=== PATIENT | male | born 1955 ===

== ENCOUNTER 2016-11-22 18:28 | Emergency (ER) | payer MEDICAID ==
[2016-11-22] MEDS ORDERED: Sodium Chloride 0.9% 500 ML IV ONE ×2 (20:14→20:21)
[2016-11-22] MEDS ORDERED: Sodium Chloride 0.9% 1,000 ML IV ONE (20:14)
[2016-11-22] MEDS ORDERED: HYDROmorphone 1 mg/ml ISec IVP STA (20:15)
--- NOTE | 2016-11-22 20:16 | C.PDOC ---
History Of Present Illness Patient is a 61 year old male who presents to the ER with a complaint of abdominal pain, associated with nausea, vomiting, and diarrhea since last night. Patient states he went to see PMD this morning who prescribed him an antacid which gave him no relief. Denies any Hx of ETOH use or symptoms of chest pain, fever, or chills. Chief Complaint (Nursing): Abdominal Pain History Per: Patient History/Exam Limitations: no limitations Onset/Duration Of Symptoms: Days (Since last night) Current Symptoms Are (Timing): Still Present Location Of Pain/Discomfort: Other (Abdominal pain) Associated Symptoms: Nausea, Vomiting, Diarrhea. denies: Fever, Chills Past Medical History Reviewed: Historical Data, Nursing Documentation, Vital Signs Vital Signs: Last Vital Signs Temp 98.6 F 11/22/16 22:06 Pulse 70 11/22/16 22:06 Resp 18 11/22/16 22:06 BP 125/72 11/22/16 22:06 Pulse Ox 96 11/22/16 22:06 - Medical History PMH: HTN Surgical History: No Surg Hx Family History: States: Unknown Family Hx - Social History Hx Alcohol Use: No Hx Substance Use: No - Immunization History Hx Tetanus Toxoid Vaccination: No Hx Influenza Vaccination: No Hx Pneumococcal Vaccination: No Review Of Systems Constitutional: Negative for: Fever, Chills Cardiovascular: Negative for: Chest Pain Gastrointestinal: Positive for: Nausea, Vomiting, Abdominal Pain, Diarrhea Physical Exam - Physical Exam Appears: Non-toxic, Other (Mild Distress) Skin: Normal Color, Warm, Dry Head: Atraumatic, Normacephalic Oral Mucosa: Moist Chest: Symmetrical, No Tenderness Cardiovascular: Rhythm Regular, No Murmur Respiratory: Normal Breath Sounds, No Rales, No Rhonchi, No Wheezing Gastrointestinal/Abdominal: Soft, Tenderness (RUQ. Increased with deep breaths) Neurological/Psych: Oriented x3, Normal Speech, Normal Cognition ED Course And Treatment - Laboratory Results Result Diagrams: 11/22/16 20:00 11/22/16 20:00 O2 Sat by Pulse Oximetry: 96 (Room air) Pulse Ox Interpretation: Normal Progress Note: EKG, blood work, abdominal US, and urinalysis ordered. Bentyl IM , pepcid IVP, dilaudid IVP, toradol IVP, zofran IVP, and IV fluids. Disposition Counseled Patient/Family Regarding: Diagnosis - Disposition Referrals: [facility] [Outside] Disposition: HOME/ ROUTINE Disposition Time: 23:11 Condition: STABLE Prescriptions: Atropine/Hyoscyamine [] 1 tab PO Q6 #12 tab Sucralfate [Carafate] 1 gm PO TID #20 tablet Instructions: Abdominal Pain (ED), Diet for Ulcers and Gastritis (GEN), Duodenitis (ED), Gastritis (ED) Forms: Gen Discharge Inst Occitan Print Language: PALAUAN - POA Present On Arrival: None - Clinical Impression Clinical Impression: Abdominal pain, Gastritis and gastroduodenitis - Scribe Statement The provider has reviewed the documentation as recorded by the Scribmatthew Antunez All medical record entries made by the Juanibmatthew were at my direction and personally dictated by me. I have reviewed the chart and agree that the record accurately reflects my personal performance of the history, physical exam, medical decision making, and the department course for this patient. I have also personally directed, reviewed, and agree with the discharge instructions and disposition.
--- NOTE | 2016-11-22 20:17 | C.PDOC ---
Chief Complaint (Nursing): Abdominal Pain Past Medical History Vital Signs: Last Vital Signs Temp 98.1 F 11/22/16 18:45 Pulse 71 11/22/16 18:45 Resp 17 11/22/16 18:45 BP 135/72 11/22/16 18:45 Pulse Ox 96 11/22/16 18:45 - Medical History PMH: HTN - Social History Hx Alcohol Use: No Hx Substance Use: No - Immunization History Hx Tetanus Toxoid Vaccination: No Hx Influenza Vaccination: No Hx Pneumococcal Vaccination: No ED Course And Treatment O2 Sat by Pulse Oximetry: 96
[2016-11-22] MEDS ORDERED: Sodium Chloride 0.9% 1,000 ML ONE (20:21)
[2016-11-22 20:22] LABS: CHLORIDE 92 mmol/L (98-107)
[2016-11-22 20:23] LABS: POTASSIUM 3.8 mmol/L (3.6-5.2); SODIUM 130 mmol/L (132-148)
[2016-11-22 20:24] LABS: RBC URINE 21 /hpf (0-3); URINE BACTERIA RARE (<OCC); URINE BILIRUBIN NEGATIVE (NEGATIVE); URINE COLOR Yellow (YELLOW); URINE GLUCOSE (UA) NORMAL (Normal); URINE KETONE TRACE mg/dL (NEGATIVE); URINE LEUKOCYTE ESTERASE NEG Leu/uL (Negative); URINE PROTEIN 1+ mg/dL (NEGATIVE); URINE UROBILINOGEN NORMAL mg/dL (0.2-1.0); WBC URINE 1 /hpf (0-5)
[2016-11-22 20:25] LABS: ALB/GLOB RATIO 1.5 (1.0-2.1); ALKALINE PHOSPHATASE 63 U/L (38-126); ALT/SGPT 31 U/L (21-72); AST/SGOT 24 U/L (17-59); BILIRUBIN,TOTAL 1.6 mg/dL (0.2-1.3); BLOOD UREA NITROGEN 9 mg/dL (9-20); CALCIUM 8.3 mg/dl (8.6-10.4); CARBON DIOXIDE 26 mmol/L (22-30); GFR AFRICAN-AMERICAN > 60; GLUCOSE,RANDOM 129 mg/dL (75-110); TOTAL PROTEIN 7.2 g/dL (6.3-8.3)
[2016-11-22 20:27] LABS: BASO % 0.2 % (0.0-2.0); EOS % 0.1 % (0.0-4.0); HEMATOCRIT 47.4 % (35.0-51.0); LYMPH # 1.5 K/uL (1.0-4.3); LYMPH % 13.2 % (20.0-40.0); MEAN CELL VOLUME 90.3 fL (80.0-94.0); MEAN CORPUSCULAR HEMOGLOBIN 30.1 pg (27.0-31.0); MEAN CORPUSCULAR HGB CONC 33.3 g/dL (33.0-37.0); MEAN PLATELET VOLUME 8.6 fL (7.2-11.7); MONO # 0.6 K/uL (0.0-0.8); MONO % 5.4 % (0.0-10.0); NRBC % 0.1 % (0.0-2.0); RED CELL DISTRIBUTION WIDTH 12.6 % (11.5-14.5); URINE BLOOD 3+ (NEGATIVE); WHITE BLOOD COUNT 11.1 K/uL (4.8-10.8)
--- NOTE | 2016-11-22 21:20 | US ---
EXAM: US Abdomen Complete CLINICAL HISTORY: 61 years old, male; Pain; Abdominal pain; Generalized; Additional info: Abd pain TECHNIQUE: Real-time ultrasound of the abdomen (complete) with image documentation. COMPARISON: No relevant prior studies available. FINDINGS: Liver: Fatty infiltration. No mass. No intrahepatic ductal dilatation. Gallbladder: No gallstones. No wall thickening. No pericholecystic fluid. Common bile duct: No dilatation. No stones. Pancreas: Unremarkable as visualized. Kidneys: Normal echogenicity. No hydronephrosis. Spleen: No splenomegaly. Aorta: Unremarkable. No aneurysm. Inferior vena cava: Unremarkable. Free fluid: No significant free fluid. IMPRESSION: 1.No acute findings. 2.Non-acute findings are described above.
[2016-11-22 22:07] VITALS: RESP 18
[2016-11-22 23:32] VITALS: BP 135/70; PULSE 72; TEMP 98.4; O2SAT 95
== END 2016-11-22 23:37 | disposition home or self-care (01) ==
LOC: C.ER 18:28 → MERGE 18:28 → C.ER 23:37
DX: K29.70 Gastritis, unspecified, without bleeding (principal); K29.90 Gastroduodenitis, unspecified, without bleeding
CPT/HCPCS: 76700; 80053; 81001; 83690; 85025; 96372; 96374; 96375; 99285; J0500; J1170; J2405; J7040

== ENCOUNTER 2017-03-11 06:32 | Observation (INO) | payer MEDICAID, MEDICARE ==
[2017-03-11] MEDS ORDERED: Albuterol 0.083% Inhal Sol (2.5 mg/3 mL) UD INH STA (07:33)
--- NOTE | 2017-03-11 07:33 | C.PDOC ---
Time Seen by Provider: 03/11/17 07:17 Chief Complaint (Nursing): Chest Pain Past Medical History Vital Signs: Last Vital Signs Temp 97.8 F 03/11/17 06:42 Pulse 65 03/11/17 06:42 Resp 16 03/11/17 06:42 BP 137/80 03/11/17 06:42 Pulse Ox 95 03/11/17 06:42 - Medical History PMH: Anxiety, HTN Denies: Chronic Kidney Disease Family History: States: Unknown Family Hx - Social History Hx Alcohol Use: No Hx Substance Use: No - Immunization History Hx Tetanus Toxoid Vaccination: No Hx Influenza Vaccination: No Hx Pneumococcal Vaccination: No ED Course And Treatment ECG: Interpreted By Me ECG Rhythm: Sinus Rhythm Rate From EC O2 Sat by Pulse Oximetry: 95 Pulse Ox Interpretation: Normal Progress - Data Reviewed Data Reviewed: Lab, Diagnostic imaging, EKG, Old records Disposition - Disposition Forms: [employer] (Bulgarian)
--- NOTE | 2017-03-11 07:36 | C.PDOC ---
History Of Present Illness 61 Y/O MALE C/O LEFT SIDED CHEST PAIN SINCE YESTERDAY. PT DESCRIBES PAIN WAXING/WANING. DENIES FEVER, CHILLS, HEADACHE, SOB, NV, OR OTHER ASSOCIATED SYMPTOMS. Time Seen by Provider: 03/11/17 07:17 Chief Complaint (Nursing): Chest Pain History Per: Patient History/Exam Limitations: no limitations Onset/Duration Of Symptoms: Hrs, Waxing/Waning Current Symptoms Are (Timing): Still Present Associated Symptoms: denies: Diaphoresis Recent travel outside of the [place]: No Past Medical History Reviewed: Historical Data, Nursing Documentation, Vital Signs Vital Signs: Last Vital Signs Temp 97.8 F 03/11/17 06:42 Pulse 67 03/11/17 08:03 Resp 20 03/11/17 08:03 BP 132/82 03/11/17 08:03 Pulse Ox 95 03/11/17 08:21 - Medical History PMH: Anxiety, HTN Family History: States: Unknown Family Hx - Social History Hx Alcohol Use: No Hx Substance Use: No - Immunization History Hx Tetanus Toxoid Vaccination: No Hx Influenza Vaccination: No Hx Pneumococcal Vaccination: No Review Of Systems Constitutional: Negative for: Fever, Chills Cardiovascular: Positive for: Chest Pain. Negative for: Palpitations Respiratory: Negative for: Cough, Shortness of Breath Gastrointestinal: Negative for: Nausea, Vomiting, Abdominal Pain Skin: Negative for: Rash Physical Exam - Physical Exam Appears: Non-toxic, No Acute Distress Skin: Warm, Dry, No Diaphoretic Head: Atraumatic, Normacephalic Oral Mucosa: Moist Chest: Symmetrical Cardiovascular: Rhythm Regular Respiratory: Normal Breath Sounds, No Rales, No Rhonchi, No Wheezing Gastrointestinal/Abdominal: Soft, No Tenderness Back: Normal Inspection Extremity: Normal ROM, Capillary Refill (< 2 sec. ) Neurological/Psych: Oriented x3, Normal Speech, Normal Cognition ED Course And Treatment - Laboratory Results Result Diagrams: 03/11/17 07:46 03/11/17 07:46 O2 Sat by Pulse Oximetry: 95 (RA) Pulse Ox Interpretation: Normal - Radiology CXR: Interpreted by Me CXR Interpretation: Yes: No Acute Disease Progress - Re-Evaluation Re-evaluation Note: 03/11/17 07:35 NITRO, ASPIRIN, TYLENOL. CXR EKG LABS ORDERED. 03/11/17 08:34 APPEARS COMFORTABLE. VSS. PT ADVISED NEED FOR ADMISSION, TO REMAIN ON CHEMICAL BLENDER. AGREES W ADMISSION. 03/11/17 08:36 D/W DR BILL WISE NEEDLEWORKER WILL ADMIT - Data Reviewed Data Reviewed: Lab, Diagnostic imaging, EKG, Old records - Continuity of Care Discussed patient case with:: Patient, On-call PMD-pt unassigned Disposition Counseled Patient/Family Regarding: Studies Performed, Diagnosis - Disposition Disposition: HOSPITALIZED Disposition Time: 08:36 Condition: STABLE Forms: [employer] (Uzbek) - POA Present On Arrival: None - Clinical Impression Clinical Impression: Chest pain - Scribe Statement The provider has reviewed the documentation as recorded by the Scribe SM All medical record entries made by the Scribe were at my direction and personally dictated by me. I have reviewed the chart and agree that the record accurately reflects my personal performance of the history, physical exam, medical decision making, and the department course for this patient. I have also personally directed, reviewed, and agree with the discharge instructions and disposition. Decision To Admit - Pt Status Changed To: Hospital Disposition Of: Observation - . Bed Request Type: Telemetry Admitting Physician: Souleymane Forbes Patient Diagnosis: Chest pain
[2017-03-11 08:03] LABS: CHLORIDE 99 mmol/L (98-107); POTASSIUM 4.2 mmol/L (3.6-5.2); SODIUM 137 mmol/L (132-148)
[2017-03-11 08:06] LABS: ALKALINE PHOSPHATASE 74 U/L (38-126); ALT/SGPT 36 U/L (21-72); AST/SGOT 18 U/L (17-59); BILIRUBIN,TOTAL 1.2 mg/dL (0.2-1.3); BLOOD UREA NITROGEN 15 mg/dL (9-20); CALCIUM 8.4 mg/dl (8.6-10.4); CARBON DIOXIDE 27 mmol/L (22-30); GFR AFRICAN-AMERICAN > 60; GLUCOSE,RANDOM 147 mg/dL (75-110); TOTAL PROTEIN 6.8 g/dL (6.3-8.3)
[2017-03-11 08:12] LABS: BASO % 0.7 % (0.0-2.0); EOS # 0.1 K/uL (0.0-0.7); EOS % 2.1 % (0.0-4.0); HEMATOCRIT 44.4 % (35.0-51.0); LYMPH # 1.3 K/uL (1.0-4.3); LYMPH % 21.8 % (20.0-40.0); MEAN CELL VOLUME 91.9 fL (80.0-94.0); MEAN CORPUSCULAR HEMOGLOBIN 31.4 pg (27.0-31.0); MEAN CORPUSCULAR HGB CONC 34.1 g/dL (33.0-37.0); MEAN PLATELET VOLUME 8.6 fL (7.2-11.7); MONO # 0.5 K/uL (0.0-0.8); MONO % 8.2 % (0.0-10.0); NRBC % 0.1 % (0.0-2.0); RED CELL DISTRIBUTION WIDTH 12.5 % (11.5-14.5); WHITE BLOOD COUNT 5.9 K/uL (4.8-10.8)
--- NOTE | 2017-03-11 09:34 | RAD ---
HISTORY: SOB COMPARISON: No prior study available comparison. TECHNIQUE: Chest PA and lateral FINDINGS: LUNGS: No active pulmonary disease. PLEURA: Suspect minor biapical pleural thickening. No effusion. No apparent pneumothorax. CARDIOVASCULAR: Normal. OSSEOUS STRUCTURES: Chronic appearing anterior wedge deformities of several thoracic and upper lumbar segments. VISUALIZED UPPER ABDOMEN: Normal. OTHER FINDINGS: None. IMPRESSION: No acute consolidation. Suspect minor biapical pleural thickening.
[2017-03-11] MEDS: (Novolog) Insulin Aspart, Recombinant 100 u/ml 10 ml vial SC SCH ×3 (12:00→22:20)
[2017-03-11] MEDS: Belladonna-Phenobarbital PO SCH ×2 (12:05→17:53)
--- NOTE | 2017-03-11 13:18 | CP.PCM.CON ---
History of Present Illness - History of Present Illness History of Present Illness: Consultation for evaluation of chest pain HPI : 61-year-old male with past medical history significant for hypertension dyslipidemia ex-smoker quit smoking about 12 years ago 35-pack- year history of smoking presented with complains of left-sided substernal chest pain intermittent H&H of that started yesterday at 6 PM. Patient describes the pain as pressure-like sensation 6 out of 10 in intensity at times worse with deep inspiration and movement and also occurring at rest. Each bout lasts about 10-15 minutes associated with mild dyspnea.Says that the symptoms of pain resolved after he was given medication in the emergency room.Denies any associated palpitations dizziness and dizziness syncope presyncope. Denies having any nausea vomiting diarrhea denies having any URI symptoms. Review of Systems - Review of Systems All systems: reviewed and no additional remarkable complaints except - Constitutional Constitutional: As Per HPI, Fatigue. absent: Anorexia, Chills, Daytime Sleepiness, Excessive Sweating, Fever, Frequent Falls, Headache, Increased Appetite, Lethargy, Malaise, Night Sweats, Snoring, Sleep Apnea, Weight Gain, Weight Loss, Weakness, Other - EENT Eyes: As Per HPI. absent: Blind Spots, Blurred Vision, Change in Vision, Decreased Night Vision, Diplopia, Discharge, Dry Eye, Exophthalmos, Floaters, Irritation, Itchy Eyes, Loss of Peripheral Vision, Pain, Photophobia, Requires Corrective Lenses, Sees Flashes, Spots in Vision, Tunnel Vision, Other Visual Disturbances, Loss of Vision, Other Ears: As Per HPI. absent: Decreased Hearing, Ear Discharge, Ear Pain, Tinnitus , Abnormal Hearing, Disequilibrium, Dizziness, Other Nose/Mouth/Throat: As Per HPI. absent: Epistaxis, Nasal Congestion, Nasal Discharge, Nasal Obstruction, Nasal Trauma, Nose Pain, Post Nasal Drip, Sinus Pain, Sinus Pressure, Bleeding Gums, Change in Voice, Dental Pain, Dry Mouth, Dysphagia, Halitosis, Hoarsness, Lip Swelling, Mouth Lesions, Mouth Pain, Odynophagia, Sore Throat, Throat Swelling, Tongue Swelling, Facial Pain, Neck Pain, Neck Mass, Other - Cardiovascular Cardiovascular: As Per HPI, Chest Pain, Chest Pain with Activity. absent: Acrocyanosis, Chest Pain at Rest, Claudication, Diaphoresis, Dyspnea, Dyspnea on Exertion, Edema, Irregular Heart Rhythm, Pain Radiating to Arm/Neck/Jaw, Leg Edema, Leg Ulcers, Lightheadedness, Orthopnea, Palpitations, Paroxysmal Nocturnal Dyspnea, Pedal Edema, Radiating Pain, Rapid Heart Rate, Slow Heart Rate, Syncope, Other - Respiratory Respiratory: As Per HPI. absent: Cough, Dyspnea, Hemoptysis, Dyspnea on Exertion, Wheezing, Snoring, Stridor, Pain on Inspiration, Chest Congestion, Excessive Mucous Production, Change in Mucous Color, Pain with Coughing, Other - Gastrointestinal Gastrointestinal: As Per HPI. absent: Abdominal Pain, Belching, Bloating, Change in Bowel Habits, Change in Stool Character, Coffee Ground Emesis, Constipation, Cramping, Diarrhea, Dyspepsia, Dysphagia, Early Satiety, Excessive Flatus, Fecal Incontinence, Heartburn, Hematemesis, Hematochezia, Loose Stools, Melena, Nausea, Odynophagia, Temesmus, Vomiting, Other - Genitourinary Genitourinary: As Per HPI. absent: Change in Urinary Stream, Difficulty Urinating, Dysuria, Flank Pain, Hematuria, Pyuria, Nocturia, Urinary Incontinence, Urinary Frequency, Urinary Hesitance, Urinary Urgency, Voiding Freq/Small Amts, Freq UTI, Hx Renal/Bladder Calculi, Hx /Renal Surgery, Bladder Distension, Other - Reproductive: Male Reproductive:Male: As Per HPI - Musculoskeletal Musculoskeletal: As Per HPI. absent: Abnormal Gait, Arthralgias, Atrophy, Back Pain, Deformity, Joint Swelling, Limited Range of Motion, Loss of Height, Muscle Cramps, Muscle Weakness, Myalgias, Neck Pain, Numbness, Radiating Pain into Limb, Stiffness, Tingling, Other - Integumentary Integumentary: As Per HPI. absent: Acne, Alopecia, Bleeding Lesions, Change in Hair, Change in Nails, Change in Pigmentation, Changing Lesions, Dry Skin, Erythema, Furuncle, Hirsutism, Lesions, New Lesions, Non-Healing Lesions, Photosensitivity, Pruritus, Rash, Skin Pain, Skin Ulcer, Sores, Striae, Swelling , Unusual Bruising, Wounds, Jaundice, Other - Neurological Neurological: As Per HPI. absent: Abnormal Gait, Abnormal Hearing, Abnormal Movements, Abnormal Speech, Behavioral Changes, Burning Sensations, Confusion, Convulsions, Disequilibrium, Dizziness, Numbness, Focal Weakness, Frequent Falls , Headaches, Lack of Coordination, Loss of Vision, Memory Loss, Paresthesias, Radicular Pain, Restless Legs, Sensory Deficit, Syncope, Tingling, Tremor, Vertigo, Weakness, Other Visual Disturbances, Other - Psychiatric Psychiatric: As Per HPI. absent: Abnormal Sleep Pattern, Anhedonia, Anxiety, Auditory Hallucinations, Behavioral Changes, Change in Appetite, Change in Libido, Confusion, Depression, Difficulty Concentrating, Hallucinations, Homicidal Ideation, Hopelessness, Irritability, Memory Loss, Mood Swings, Panic Attacks, Paranoia, Suicidal Ideation, Visual Hallucinations, Tactile Hallucinations, Other - Endocrine Endocrine: As Per HPI. absent: Change in Body Appearance, Change in Libido, Cold Intolorance, Deepening of Voice, Excessive Sweating, Fatigue, Flushing, Heat Intolorance, Increase in Ring/Shoe/Hat Size, Palpitations, Polydipsia, Polyphagia, Polyuria, Other - Hematologic/Lymphatic Hematologic: As Per HPI. absent: Easy Bleeding, Easy Bruising, Lymphadenopathy , Other Past Patient History - Past Medical History & Family History Past Medical History?: Yes Pertinent Family History: +ve for HTN ( mom ) - Past Social History Smoking Status: Former Smoker Alcohol: Occasional - CARDIAC Hx Hypertension: Yes - PULMONARY Hx Respiratory Disorders: No - NEUROLOGICAL Hx Neurological Disorder: Yes Hx Vertigo: Yes - HEENT Hx HEENT Problems: No - RENAL Hx Chronic Kidney Disease: No - ENDOCRINE/METABOLIC Hx Diabetes Mellitus Type 2: Yes - HEMATOLOGICAL/ONCOLOGICAL Hx Blood Disorders: No - INTEGUMENTARY Hx Dermatological Problems: No - MUSCULOSKELETAL/RHEUMATOLOGICAL Hx Musculoskeletal Disorders: Yes Hx Back Pain: Yes Hx Falls: No Other/Comment: CERVICAL DYSPLACEMENT. LUNBAR RADICULOPATHY - GASTROINTESTINAL Hx Gastrointestinal Disorders: No - GENITOURINARY/GYNECOLOGICAL Hx Genitourinary Disorders: No - PSYCHIATRIC Hx Anxiety: Yes Hx Substance Use: No - SURGICAL HISTORY Hx Surgeries: Yes Other/Comment: HERNIA REPAIR X2 - ANESTHESIA Hx Anesthesia: Yes Meds Allergies/Adverse Reactions: Allergies Allergy/AdvReac Type Severity Reaction Status Date / Time No Known Allergies Allergy Verified 03/11/17 06:45 - Medications Medications: Current Medications Belladonna/Phenobarbital () 1 tab PO Q6 [facility] Last Admin: 03/11/17 12:05 Dose: 1 tab Enoxaparin Sodium (Lovenox) 40 mg SC DAILY [facility] Glimepiride (Amaryl) 2 mg PO DAILY [facility] Insulin Aspart (Novolog) 0 unit SC ACHS KAYLYNN PRN Reason: Protocol Last Admin: 03/11/17 12:00 Dose: Not Given Lorazepam (Ativan) 1 mg PO BID [facility] Losartan Potassium (Cozaar) 50 mg PO DAILY [facility] Metformin HCl (Glucophage) 500 mg PO DAILY [facility] Nitroglycerin (Nitrostat Sl Tab) 0.4 mg SL Q5M PRN PRN Reason: CHEST PAIN Last Admin: 03/11/17 08:03 Dose: 0.4 mg Sucralfate (Carafate Tab) 1 gm PO TID [facility] Physical Exam - Constitutional Appears: Well - Head Exam Head Exam: ATRAUMATIC, NORMAL INSPECTION, NORMOCEPHALIC - Eye Exam Eye Exam: EOMI, Normal appearance, PERRL Pupil Exam: NORMAL ACCOMODATION, PERRL - ENT Exam ENT Exam: Mucous Membranes Moist, Normal Exam - Neck Exam Neck exam: Positive for: Normal Inspection - Respiratory Exam Respiratory Exam: Clear to Auscultation Bilateral, NORMAL BREATHING PATTERN - Cardiovascular Exam Cardiovascular Exam: REGULAR RHYTHM, +S1, +S2, Systolic Murmur - GI/Abdominal Exam GI & Abdominal Exam: Normal Bowel Sounds, Soft. absent: Tenderness - Rectal Exam Rectal Exam: NORMAL INSPECTION - Extremities Exam Extremities exam: Positive for: normal inspection - Back Exam Back exam: NORMAL INSPECTION - Neurological Exam Neurological exam: Alert, CN II-XII Intact, Normal Gait, Oriented x3, Reflexes Normal - Psychiatric Exam Psychiatric exam: Normal Affect, Normal Mood - Skin Skin Exam: Dry, Intact, Normal Color, Warm Results - Vital Signs Recent Vital Signs: Last Vital Signs Temp 97.7 F 03/11/17 12:41 Pulse 61 03/11/17 12:41 Resp 14 03/11/17 12:41 BP 113/66 03/11/17 12:41 Pulse Ox 95 03/11/17 12:41 - Labs Result Diagrams: 03/11/17 07:46 03/11/17 07:46 Labs: Laboratory Results - last 24 hr 03/11/17 11:51 POC Glucose (mg/dL) 124 H - EKG Data EKG Interpreted by: Myself EKG shows normal: Sinus rhythm, Bailey, Intervals, QRS complexes, ST-T waves Rate: Normal Assessment & Plan (1) Chest pain Assessment and Plan: with both typical and atypical features LISSETTE telemetry keep pt on asa, statins check FLP plan for Exercise nuclear stress test in am NPO p MN Status: Acute (2) HTN (hypertension) Assessment and Plan: cont with losartan monitor BP titration per Dr Price Status: Acute (3) Dyslipidemia Assessment and Plan: check FLP Status: Acute (4) Smoker Assessment and Plan: ex-smoker counselled Status: Acute
--- NOTE | 2017-03-11 23:13 | CP.PCM.HP ---
History of Present Illness - History of Present Illness History of Present Illness: 61 Y/O HM WITH HTN,HYPERLPIDEMIA, EX SMOKER AND HE CAME WITH L PRECORDIAL CHEST PAIN, NO COUGH, NO DYSPEPSIA NON EXERTIONAL, NO FEVER, NO ORTHOPNEA, NO PND Present on Admission - Present on Admission Any Indicators Present on Admission: No History of DVT/PE: No History of Uncontrolled Diabetes: No Urinary Catheter: No Decubitus Ulcer Present: No Review of Systems - Constitutional Constitutional: Weakness - Cardiovascular Cardiovascular: Chest Pain at Rest, Palpitations - Gastrointestinal Gastrointestinal: Bloating - Musculoskeletal Musculoskeletal: Arthralgias - Integumentary Integumentary: Dry Skin Past Patient History - Past Medical History & Family History Past Medical History?: Yes - Past Social History Smoking Status: Former Smoker Alcohol: Occasional - CARDIAC Hx Hypertension: Yes - PULMONARY Hx Respiratory Disorders: No - NEUROLOGICAL Hx Neurological Disorder: Yes Hx Vertigo: Yes - HEENT Hx HEENT Problems: No - RENAL Hx Chronic Kidney Disease: No - ENDOCRINE/METABOLIC Hx Diabetes Mellitus Type 2: Yes - HEMATOLOGICAL/ONCOLOGICAL Hx Blood Disorders: No - INTEGUMENTARY Hx Dermatological Problems: No - MUSCULOSKELETAL/RHEUMATOLOGICAL Hx Musculoskeletal Disorders: Yes Hx Back Pain: Yes Hx Falls: No Other/Comment: CERVICAL DYSPLACEMENT. LUNBAR RADICULOPATHY - GASTROINTESTINAL Hx Gastrointestinal Disorders: No - GENITOURINARY/GYNECOLOGICAL Hx Genitourinary Disorders: No - PSYCHIATRIC Hx Anxiety: Yes Hx Substance Use: No - SURGICAL HISTORY Hx Surgeries: Yes Other/Comment: HERNIA REPAIR X2 - ANESTHESIA Hx Anesthesia: Yes Meds Allergies/Adverse Reactions: Allergies Allergy/AdvReac Type Severity Reaction Status Date / Time No Known Allergies Allergy Verified 03/11/17 06:45 Physical Exam - Constitutional Appears: Non-toxic, No Acute Distress - Head Exam Head Exam: ATRAUMATIC, NORMAL INSPECTION, NORMOCEPHALIC - Eye Exam Eye Exam: EOMI, Normal appearance, PERRL Pupil Exam: NORMAL ACCOMODATION - ENT Exam ENT Exam: Mucous Membranes Moist, Normal Exam, Normal Oropharynx, TM's Normal Bilaterally - Neck Exam Neck exam: Positive for: Normal Inspection - Respiratory Exam Respiratory Exam: Clear to Auscultation Bilateral, NORMAL BREATHING PATTERN - Cardiovascular Exam Cardiovascular Exam: REGULAR RHYTHM, +S1, +S2 - GI/Abdominal Exam GI & Abdominal Exam: Normal Bowel Sounds, Soft - Rectal Exam Rectal Exam: NORMAL INSPECTION - Back Exam Back exam: NORMAL INSPECTION - Neurological Exam Neurological exam: Alert, CN II-XII Intact, Normal Gait, Oriented x3, Reflexes Normal - Psychiatric Exam Psychiatric exam: Normal Mood - Skin Skin Exam: Intact Results - Vital Signs Recent Vital Signs: Last Vital Signs Temp 97.2 F L 03/11/17 15:00 Pulse 64 03/11/17 15:00 Resp 20 03/11/17 15:00 BP 124/75 03/11/17 15:00 Pulse Ox 95 03/11/17 15:00 - Labs Result Diagrams: 03/11/17 07:46 03/11/17 07:46 Labs: Laboratory Results - last 24 hr 03/11/17 03/11/17 03/11/17 11:51 16:25 19:59 POC Glucose (mg/dL) 124 H 181 H Total Creatine Kinase 81 CK-MB (Mass) 1.44 Troponin I, Quant < 0.0120 03/11/17 21:06 POC Glucose (mg/dL) 106 Total Creatine Kinase CK-MB (Mass) Troponin I, Quant Assessment & Plan (1) Chest pain Assessment and Plan: R/O AMI Status: Acute Priority: High (2) Dyslipidemia Status: Chronic Priority: Medium (3) HTN (hypertension) Status: Chronic Priority: Medium
[2017-03-11 23:47] LABS: CHOLESTEROL 174 mg/dL (0-199)
[2017-03-12] MEDS: Belladonna-Phenobarbital PO SCH ×5 (00:10→23:59)
[2017-03-12] MEDS: (Novolog) Insulin Aspart, Recombinant 100 u/ml 10 ml vial SC SCH ×4 (08:08→21:56)
[2017-03-12] MEDS: Enoxaparin 40 mg Syringe SC SCH (09:46)
[2017-03-12 16:01] VITALS: RESP 20
--- NOTE | 2017-03-12 23:21 | CP.PCM.PN ---
Subjective - Date & Time of Evaluation Date of Evaluation: 03/12/17 Time of Evaluation: 10:15 - Subjective Subjective: LESS CHEST PAIN, FOR X MYOVIEW TEST, NO FEVER, NO SOB Objective - Vital Signs/Intake and Output Vital Signs (last 24 hours): Temp Pulse Resp BP Pulse Ox 97.3 F L 77 20 108/71 96 03/12/17 15:00 03/12/17 15:00 03/12/17 15:00 03/12/17 15:00 03/12/17 15:00 - Medications Medications: Current Medications Belladonna/Phenobarbital () 1 tab PO Q6 [facility] Last Admin: 03/12/17 18:15 Dose: 1 tab Enoxaparin Sodium (Lovenox) 40 mg SC DAILY [facility] Last Admin: 03/12/17 09:46 Dose: 40 mg Glimepiride (Amaryl) 2 mg PO DAILY [facility] Last Admin: 03/12/17 09:47 Dose: 2 mg Insulin Aspart (Novolog) 0 unit SC ACHS [facility] PRN Reason: Protocol Last Admin: 03/12/17 21:56 Dose: Not Given Lorazepam (Ativan) 1 mg PO BID [facility] Last Admin: 03/12/17 18:07 Dose: 1 mg Losartan Potassium (Cozaar) 50 mg PO DAILY [facility] Last Admin: 03/12/17 09:47 Dose: 50 mg Metformin HCl (Glucophage) 500 mg PO DAILY [facility] Last Admin: 03/12/17 09:47 Dose: 500 mg Nitroglycerin (Nitrostat Sl Tab) 0.4 mg SL Q5M PRN PRN Reason: CHEST PAIN Last Admin: 03/11/17 08:03 Dose: 0.4 mg Sucralfate (Carafate Tab) 1 gm PO TID [facility] Last Admin: 03/12/17 18:07 Dose: 1 gm - Labs Labs: PT 11.0 SECONDS (9.7-12.2) 03/11/17 07:46 INR 1.0 03/11/17 07:46 APTT 30 SECONDS (21-34) 03/11/17 07:46 - Constitutional Appears: Non-toxic, No Acute Distress - Head Exam Head Exam: ATRAUMATIC, NORMAL INSPECTION, NORMOCEPHALIC - Eye Exam Eye Exam: EOMI, Normal appearance Pupil Exam: NORMAL ACCOMODATION - ENT Exam ENT Exam: Mucous Membranes Moist, Normal Exam - Neck Exam Neck Exam: Full ROM, Normal Inspection - Respiratory Exam Respiratory Exam: Clear to Ausculation Bilateral, NORMAL BREATHING PATTERN - Cardiovascular Exam Cardiovascular Exam: REGULAR RHYTHM, +S1, +S2 - GI/Abdominal Exam GI & Abdominal Exam: Soft, Normal Bowel Sounds - Rectal Exam Rectal Exam: NORMAL INSPECTION Assessment and Plan (1) Chest pain Assessment & Plan: EX MYOVIEW TEST Status: Acute (2) Dyslipidemia Status: Chronic (3) HTN (hypertension) Status: Chronic
--- NOTE | 2017-03-13 01:43 | CP.PCM.PN ---
Subjective - Date & Time of Evaluation Date of Evaluation: 03/12/17 Time of Evaluation: 07:40 - Subjective Subjective: ACS ruled out plan for stress test today Objective - Vital Signs/Intake and Output Vital Signs (last 24 hours): Temp Pulse Resp BP Pulse Ox 97.3 F L 84 20 108/71 96 03/12/17 15:00 03/12/17 17:30 03/12/17 15:00 03/12/17 15:00 03/12/17 15:00 - Medications Medications: Current Medications Belladonna/Phenobarbital () 1 tab PO Q6 [facility] Last Admin: 03/12/17 23:59 Dose: 1 tab Enoxaparin Sodium (Lovenox) 40 mg SC DAILY [facility] Last Admin: 03/12/17 09:46 Dose: 40 mg Glimepiride (Amaryl) 2 mg PO DAILY [facility] Last Admin: 03/12/17 09:47 Dose: 2 mg Insulin Aspart (Novolog) 0 unit SC ACHS [facility] PRN Reason: Protocol Last Admin: 03/12/17 21:56 Dose: Not Given Lorazepam (Ativan) 1 mg PO BID [facility] Last Admin: 03/12/17 18:07 Dose: 1 mg Losartan Potassium (Cozaar) 50 mg PO DAILY [facility] Last Admin: 03/12/17 09:47 Dose: 50 mg Metformin HCl (Glucophage) 500 mg PO DAILY [facility] Last Admin: 03/12/17 09:47 Dose: 500 mg Nitroglycerin (Nitrostat Sl Tab) 0.4 mg SL Q5M PRN PRN Reason: CHEST PAIN Last Admin: 03/11/17 08:03 Dose: 0.4 mg Sucralfate (Carafate Tab) 1 gm PO TID [facility] Last Admin: 03/12/17 18:07 Dose: 1 gm - Labs Labs: PT 11.0 SECONDS (9.7-12.2) 03/11/17 07:46 INR 1.0 03/11/17 07:46 APTT 30 SECONDS (21-34) 03/11/17 07:46 - Constitutional Appears: Well - Head Exam Head Exam: ATRAUMATIC, NORMAL INSPECTION, NORMOCEPHALIC - Eye Exam Eye Exam: EOMI, Normal appearance, PERRL Pupil Exam: NORMAL ACCOMODATION, PERRL - ENT Exam ENT Exam: Mucous Membranes Moist, Normal Exam - Neck Exam Neck Exam: Full ROM, Normal Inspection. absent: Lymphadenopathy - Respiratory Exam Respiratory Exam: Clear to Ausculation Bilateral, NORMAL BREATHING PATTERN - Cardiovascular Exam Cardiovascular Exam: REGULAR RHYTHM, +S1, +S2, Murmur - GI/Abdominal Exam GI & Abdominal Exam: Soft, Normal Bowel Sounds. absent: Tenderness - Extremities Exam Extremities Exam: Full ROM, Normal Capillary Refill, Normal Inspection. absent : Joint Swelling, Pedal Edema - Back Exam Back Exam: NORMAL INSPECTION - Neurological Exam Neurological Exam: Alert, Awake, CN II-XII Intact, Normal Gait, Oriented x3 - Psychiatric Exam Psychiatric exam: Normal Affect, Normal Mood - Skin Skin Exam: Dry, Intact, Normal Color, Warm Assessment and Plan (1) Chest pain Assessment & Plan: ACS ruled out plan for stress test today Status: Acute (2) HTN (hypertension) Assessment & Plan: cont home meds for now Status: Chronic (3) Dyslipidemia Assessment & Plan: statins Status: Chronic (4) Smoker Status: Acute
[2017-03-13] MEDS: Belladonna-Phenobarbital PO SCH ×2 (05:57→12:35)
[2017-03-13] MEDS: (Novolog) Insulin Aspart, Recombinant 100 u/ml 10 ml vial SC SCH ×2 (08:26→12:21)
[2017-03-13 09:24] VITALS: BP 170/86; TEMP 97.5; O2SAT 97
--- NOTE | 2017-03-13 09:37 | CP.PCM.PN ---
Subjective - Date & Time of Evaluation Date of Evaluation: 03/13/17 Time of Evaluation: 09:34 - Subjective Subjective: pt cp free stress test mild defect - ? movement artifact vs. cad Objective - Vital Signs/Intake and Output Vital Signs (last 24 hours): Temp Pulse Resp BP Pulse Ox 97.5 F L 69 20 170/86 H 97 03/13/17 09:22 03/13/17 09:22 03/13/17 09:22 03/13/17 09:22 03/13/17 09:22 - Medications Medications: Current Medications Belladonna/Phenobarbital () 1 tab PO Q6 [facility] Last Admin: 03/13/17 05:57 Dose: 1 tab Enoxaparin Sodium (Lovenox) 40 mg SC DAILY [facility] Last Admin: 03/12/17 09:46 Dose: 40 mg Glimepiride (Amaryl) 2 mg PO DAILY [facility] Last Admin: 03/12/17 09:47 Dose: 2 mg Insulin Aspart (Novolog) 0 unit SC ACHS [facility] PRN Reason: Protocol Last Admin: 03/13/17 08:26 Dose: Not Given Lorazepam (Ativan) 1 mg PO BID [facility] Last Admin: 03/12/17 18:07 Dose: 1 mg Losartan Potassium (Cozaar) 50 mg PO DAILY [facility] Last Admin: 03/12/17 09:47 Dose: 50 mg Metformin HCl (Glucophage) 500 mg PO DAILY [facility] Last Admin: 03/12/17 09:47 Dose: 500 mg Nitroglycerin (Nitrostat Sl Tab) 0.4 mg SL Q5M PRN PRN Reason: CHEST PAIN Last Admin: 03/11/17 08:03 Dose: 0.4 mg Sucralfate (Carafate Tab) 1 gm PO TID [facility] Last Admin: 03/12/17 18:07 Dose: 1 gm - Labs Labs: PT 11.0 SECONDS (9.7-12.2) 03/11/17 07:46 INR 1.0 03/11/17 07:46 APTT 30 SECONDS (21-34) 03/11/17 07:46 - Constitutional Appears: Well - Head Exam Head Exam: ATRAUMATIC, NORMAL INSPECTION, NORMOCEPHALIC - Eye Exam Eye Exam: EOMI, Normal appearance, PERRL Pupil Exam: NORMAL ACCOMODATION, PERRL - ENT Exam ENT Exam: Mucous Membranes Moist, Normal Exam - Neck Exam Neck Exam: Full ROM, Normal Inspection. absent: Lymphadenopathy - Respiratory Exam Respiratory Exam: Clear to Ausculation Bilateral, NORMAL BREATHING PATTERN - Cardiovascular Exam Cardiovascular Exam: REGULAR RHYTHM, +S1, +S2, Murmur - GI/Abdominal Exam GI & Abdominal Exam: Soft, Normal Bowel Sounds. absent: Tenderness - Extremities Exam Extremities Exam: Full ROM, Normal Capillary Refill, Normal Inspection. absent : Joint Swelling, Pedal Edema - Back Exam Back Exam: NORMAL INSPECTION - Neurological Exam Neurological Exam: Alert, Awake, CN II-XII Intact, Oriented x3 - Psychiatric Exam Psychiatric exam: Normal Affect, Normal Mood - Skin Skin Exam: Dry, Intact, Normal Color, Warm Assessment and Plan (1) Chest pain Assessment & Plan: atypical stress test mildly +ve ? artifact will keep pt on ASA, BB and statin stable to dc home outpt f/u next week Status: Acute (2) HTN (hypertension) Assessment & Plan: add BB metoprolol 25mg po bid cont losartan Status: Chronic (3) Dyslipidemia Assessment & Plan: add Lipitor 10mg po daily Status: Chronic (4) Smoker Assessment & Plan: counselled for cessation Status: Acute
[2017-03-13] MEDS: Enoxaparin 40 mg Syringe SC SCH (09:49)
--- NOTE | 2017-03-13 11:35 | CP.PCM.PN ---
Subjective - Date & Time of Evaluation Date of Evaluation: 03/13/17 Time of Evaluation: 11:30 - Subjective Subjective: Pt seen and examined today, chest pain resolved, denies any sob, palpitations, dizziness, headache, N/V/D s/p stress test seen by Dr. Pena, today and cleared for discharge from cardiology stand point Objective - Vital Signs/Intake and Output Vital Signs (last 24 hours): Temp Pulse Resp BP Pulse Ox 97.5 F L 69 20 170/86 H 97 03/13/17 09:22 03/13/17 09:22 03/13/17 09:22 03/13/17 09:22 03/13/17 09:22 - Medications Medications: Current Medications Belladonna/Phenobarbital () 1 tab PO Q6 [facility] Last Admin: 03/13/17 05:57 Dose: 1 tab Enoxaparin Sodium (Lovenox) 40 mg SC DAILY [facility] Last Admin: 03/13/17 09:49 Dose: 40 mg Glimepiride (Amaryl) 2 mg PO DAILY [facility] Last Admin: 03/13/17 09:49 Dose: 2 mg Insulin Aspart (Novolog) 0 unit SC ACHS [facility] PRN Reason: Protocol Last Admin: 03/13/17 08:26 Dose: Not Given Lorazepam (Ativan) 1 mg PO BID [facility] Last Admin: 03/13/17 09:49 Dose: 1 mg Losartan Potassium (Cozaar) 50 mg PO DAILY [facility] Last Admin: 03/13/17 09:49 Dose: 50 mg Metformin HCl (Glucophage) 500 mg PO DAILY [facility] Last Admin: 03/13/17 09:49 Dose: 500 mg Nitroglycerin (Nitrostat Sl Tab) 0.4 mg SL Q5M PRN PRN Reason: CHEST PAIN Last Admin: 03/11/17 08:03 Dose: 0.4 mg Sucralfate (Carafate Tab) 1 gm PO TID [facility] Last Admin: 03/13/17 09:49 Dose: 1 gm - Labs Labs: PT 11.0 SECONDS (9.7-12.2) 03/11/17 07:46 INR 1.0 03/11/17 07:46 APTT 30 SECONDS (21-34) 03/11/17 07:46 - Constitutional Appears: Well, No Acute Distress - Respiratory Exam Respiratory Exam: Clear to Ausculation Bilateral, NORMAL BREATHING PATTERN - Cardiovascular Exam Cardiovascular Exam: REGULAR RHYTHM, +S1, +S2 - Neurological Exam Neurological Exam: Alert, Awake, Oriented x3 Assessment and Plan - Assessment and Plan (Free Text) Assessment: 61 yr old male admitted for chest pain troponin x 3 - negative s/p stress test Dr. Pena cleared for discharge today D/W , stable for discharge home today and f/u with PMD in 1 week Discharge instructions discussed with patient who understands and agrees with plan
[2017-03-13 12:18] VITALS: PULSE 86
--- NOTE | 2017-03-13 21:43 | CP.PCM.DIS ---
Provider - Provider Date of Admission: 03/11/17 08:39 Attending physician: Souleymane Forbes MD Time Spent in preparation of Discharge (in minutes): 30 Diagnosis - Discharge Diagnosis (1) Chest pain Status: Acute Priority: High (2) Dyslipidemia Status: Chronic Priority: Medium (3) HTN (hypertension) Status: Chronic Priority: Medium Hospital Course - Lab Results Lab Results: Most Recent Lab Values WBC 5.9 K/uL (4.8-10.8) 03/11/17 07:46 RBC 4.83 Mil/uL (4.40-5.90) 03/11/17 07:46 Hgb 15.1 g/dL (12.0-18.0) 03/11/17 07:46 Hct 44.4 % (35.0-51.0) 03/11/17 07:46 MCV 91.9 fL (80.0-94.0) 03/11/17 07:46 MCH 31.4 pg (27.0-31.0) H 03/11/17 07:46 MCHC 34.1 g/dL (33.0-37.0) 03/11/17 07:46 RDW 12.5 % (11.5-14.5) 03/11/17 07:46 Plt Count 168 K/uL (130-400) 03/11/17 07:46 MPV 8.6 fL (7.2-11.7) 03/11/17 07:46 Neut % (Auto) 67.2 % (50.0-75.0) 03/11/17 07:46 Lymph % (Auto) 21.8 % (20.0-40.0) 03/11/17 07:46 Mora % (Auto) 8.2 % (0.0-10.0) 03/11/17 07:46 Eos % (Auto) 2.1 % (0.0-4.0) 03/11/17 07:46 Baso % (Auto) 0.7 % (0.0-2.0) 03/11/17 07:46 Neut # 4.0 K/uL (1.8-7.0) 03/11/17 07:46 Lymph # 1.3 K/uL (1.0-4.3) 03/11/17 07:46 Mora # 0.5 K/uL (0.0-0.8) 03/11/17 07:46 Eos # 0.1 K/uL (0.0-0.7) 03/11/17 07:46 Baso # 0.0 K/uL (0.0-0.2) 03/11/17 07:46 PT 11.0 SECONDS (9.7-12.2) 03/11/17 07:46 INR 1.0 03/11/17 07:46 APTT 30 SECONDS (21-34) 03/11/17 07:46 Sodium 137 mmol/L (132-148) 03/11/17 07:46 Potassium 4.2 mmol/L (3.6-5.2) 03/11/17 07:46 Chloride 99 mmol/L (98-107) 03/11/17 07:46 Carbon Dioxide 27 mmol/L (22-30) 03/11/17 07:46 Anion Gap 15 (10-20) 03/11/17 07:46 BUN 15 mg/dL (9-20) 03/11/17 07:46 Creatinine 0.7 MG/DL (0.8-1.5) L 03/11/17 07:46 Est GFR ( Amer) > 60 03/11/17 07:46 Est GFR (Non-Af Amer) > 60 03/11/17 07:46 POC Glucose (mg/dL) 121 mg/dL (65-110) H 03/13/17 05:59 Random Glucose 147 mg/dL (75-110) H 03/11/17 07:46 Calcium 8.4 mg/dl (8.6-10.4) L 03/11/17 07:46 Total Bilirubin 1.2 mg/dL (0.2-1.3) 03/11/17 07:46 AST 18 U/L (17-59) 03/11/17 07:46 ALT 36 U/L (21-72) 03/11/17 07:46 Alkaline Phosphatase 74 U/L (38-126) 03/11/17 07:46 Total Creatine Kinase 52 U/L (55-170) L 03/12/17 19:38 CK-MB (Mass) 1.01 ng/mL (0.0-3.38) 03/12/17 19:38 Troponin I < 0.0120 ng/mL (0.00-0.120) 03/11/17 07:46 Troponin I, Quant < 0.0120 ng/mL (0.00-0.120) 03/12/17 19:38 Total Protein 6.8 g/dL (6.3-8.3) 03/11/17 07:46 Albumin 3.5 g/dL (3.5-5.0) 03/11/17 07:46 Globulin 3.4 gm/dL (2.2-3.9) 03/11/17 07:46 Albumin/Globulin Ratio 1.0 (1.0-2.1) 03/11/17 07:46 Triglycerides 185 mg/dL (0-149) H D 03/11/17 19:59 Cholesterol 174 mg/dL (0-199) 03/11/17 19:59 LDL Cholesterol Direct 103 mg/dL (0-129) 03/11/17 19:59 HDL Cholesterol 41 mg/dL (30-70) 03/11/17 19:59 - Hospital Course Hospital Course: 61 Y/O WITH HTN ADMITTED WTH CHEST PAIN AND HE WAS TREATED WITH MEDS HE UNDERWENT EXMYOVIEW AND HE HAS BORDERLINE AND IS FOR DISCHARGE ON STATIN ASA, Discharge Exam - Head Exam Head Exam: ATRAUMATIC, NORMAL INSPECTION, NORMOCEPHALIC - Eye Exam Eye Exam: EOMI, Normal appearance, PERRL Pupil Exam: NORMAL ACCOMODATION - ENT Exam ENT Exam: Mucous Membranes Moist, Normal Exam, Normal Oropharynx, TM's Normal Bilaterally - Respiratory Exam Respiratory Exam: Clear to PA & Lateral, NORMAL BREATHING PATTERN - Cardiovascular Exam Cardiovascular Exam: REGULAR RHYTHM, +S1, +S2 - GI/Abdominal Exam GI & Abdominal Exam: Normal Bowel Sounds - Rectal Exam Rectal Exam: NORMAL INSPECTION - Extremities Exam Extremities exam: normal capillary refill, pedal pulses present - Neurological Exam Neurological exam: Alert, CN II-XII Intact, Normal Gait, Oriented x3, Reflexes Normal - Psychiatric Exam Psychiatric exam: Normal Affect, Normal Mood - Skin Skin Exam: Intact Discharge Plan - Discharge Medications Prescriptions: Aspirin 81 mg PO DAILY #90 tab.chew Atorvastatin [Lipitor] 10 mg PO DIN #90 tab Metoprolol Succinate XL [Toprol XL] 25 mg PO BRK #90 tab - Follow Up Plan Condition: STABLE Disposition: HOME/ ROUTINE Instructions: Metoprolol (By mouth), Aspirin (By mouth), Atorvastatin (By mouth ), Chest Pain (DC), Heart Healthy Diet (DC) Additional Instructions: f/u with PMD IN 1 week Continue medication as per Med. Rec. Referrals: Neo Pena MD [Staff Provider] -
--- NOTE | 2017-03-15 16:22 | CARD ---
APPROVED REPORT EKG Measurement Heart [id number] VT 130P63 [id number] <Conclusion> Normal sinus rhythm Normal ECG
--- NOTE | 2017-04-04 11:15 | CARD ---
APPROVED REPORT Protocol: KATIE Test Type: NUCLEAR STRESS Test Indications: CP Target HR: 159 bpm Resting ECG: normal Resting Heart Rate: 93 bpm Resting Blood Pressure: 138/80mmHg submaximum (85%): 135 bpm TEST SUMMARY PRETESTWARM-UP07:[id number]/80.0. EXERCISESTAGE 103:[id number]/80.0. EXERCISESTAGE 202:[id number]/80.0. [id number]/80.0. POST EXERCISE Reason for Termination: Fatigue Target HR: Yes Max HR: 162 bpm 101% of Maximum Predicted HR: 159 bpm Exercise duration: 05:39 min:sec, 2 Stage Exercise capacity: 7.0METs Max Blood Pressure: 150/80mmHg Blood Pressure response to exercise: normal resting BP - appropriate response Heart Rate response to exercise: appropriate Chest Pain: No, none Angina index: 0 Arrhythmia: No, none ST Change: Yes, Depression upsloping Deviation: 0 mm INTERPRETATION Stress EKG Conclusion: No electrocardiographic evidence of ischemia noted on EKG. EXAM: Myocardial Perfusion STRESS/REST Imaging Protocol The imaging protocol used to acquire images was Stress Tc-99m/rest Tc-99m 1 day Stress Spect myocardial perfusion imaging was performed in supine position 46 minutes following the injection of 12.1 mCi of Tc-99 Myoview. Gated Rest Spect was performed 55 minutes after intravenous 30.1 mci Tc-99 Myoview injection. The images were gated to evaluate regional wall motion and calculate ventricular ejection fraction. RESTING DATA EDV77.44xfWJ5.90L/min ESV30.00mlMyocardial Xezt913.00g Av. Heart Rate82.00bpm EF61.00% STRESS DATA AWY707.96woXR6.00L/min ESV41.00mlMyocardial Sine893.00g EF60.00% Regional WT score at stress:2.00 Regional WM score at stress:0.00 Summed WT score at stress:15.00 Av. Heart Rate70.00bpmSummed WM score at stress:2.00 Study quality was fair. Left Ventricular size was Normal at Rest and Stress. LV Perfusion 1 Perfusion Defect Location: lateral Perfusion Defect Size: Small (1-2 segments) Perfusion Defect Severity: Mild Type of Perfusion Defect: Partially Reversible Mild reversible defect in the lateral wall. LV Perf. Quant 17 Seg. SSS1.00 17 Seg. SRS0.00 17 Seg. SDS1.00 Stress Defect Extent (% LAD)0.00Rest Defect Extent (% LAD)0.00Rev. Defect Extent (% LAD)0.00 Stress Defect Extent (% LCX)10.00Rest Defect Extent (% LCX)0.00Rev. Defect Extent (% LCX)10.00 Stress Defect Extent (% RCA)0.00Rest Defect Extent (% RCA)0.00Rev. Defect Extent (% RCA)0.00 Stress Defect Extent (% JAMAL)1.70Rest Defect Extent (% JAMAL)0.00Rev. Defect Extent (% JAMAL)1.70 Other Information Quality:Average Overall Exercise Capacity: Average IMPRESSION Normal Myocardial Perfusion exercise stress study Global LV Function: Normal Stress Test Summary: Normal LV Perfusion Summary: lEquivocal Conclusion 1. - Mild lateral wall defect ( low probability for significant obstructive CAD ) 2. - Normal LVEF 3. - Consider further invasive evaluation if patient has symptoms on maximal medical therapy
== END 2017-03-13 13:30 | disposition home or self-care (01) ==
LOC: C.ER 06:32 → C.9E 08:39 → C.6T 12:04
PROVIDERS: ADMIT Internal Medicine; ATTEND Internal Medicine
DX: R07.89 Other chest pain (principal); F17.200 Nicotine dependence, unspecified, uncomplicated; I10 Essential (primary) hypertension; E78.5 Hyperlipidemia, unspecified
CPT/HCPCS: 36415; 71020; 78452; 80053; 80061; 82948; 84484; 85025; 85610; 85730; 93017; 97116; 97161; 97530; 99285; A9502; G0378; G8978; G8979; G8980; J1650

== ENCOUNTER 2018-02-11 19:28 | Emergency (ER) | payer MEDICARE, MEDICAID ==
[2018-02-11 19:29] VITALS: BMI 28.2
[2018-02-11 19:54] VITALS: BP 143/81; PULSE 72; RESP 20; TEMP 98.3; O2SAT 97
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
--- NOTE | 2018-02-12 07:39 | RAD ---
Date of service: 02/11/2018 PROCEDURE: Cervical Spine Radiographs. HISTORY: Pain. COMPARISON: Cervical spine radiographs 02/26/2015. FINDINGS: BONES: Straightened curvature reiterated. No definite interval fracture or spondylolisthesis identified. DISC SPACES: Marked mid to inferior multilevel cervical spondylosis reiterated with limited disc height loss again seen at C5-6 and C6-7 as well. Multilevel facet joint degenerative arthropathy again appears diffuse. SOFT TISSUES: Normal. No prevertebral soft tissue swelling. OTHER FINDINGS: None. IMPRESSION: Straightened curvature is noted as recurrent or chronic finding. No acute fracture or spondylolisthesis. Multilevel degenerative disc disease and facet arthropathy are reiterated.
== END 2018-02-11 20:57 | disposition home or self-care (01) ==
LOC: C.ER 19:28
DX: S13.4XXA Sprain of ligaments of cervical spine, initial encounter (principal); V43.52XA Car driver injured in collision with other type car in traffic accident, initial encounter; I10 Essential (primary) hypertension

== ENCOUNTER 2018-05-14 09:08 | Emergency (ER) | payer MEDICARE, MEDICAID ==
[2018-05-14 09:09] VITALS: BMI 28.2
[2018-05-14 09:41] VITALS: O2SAT 99
[2018-05-14] MEDS ORDERED: Sodium Chloride 0.9% 1,000 ML IV ONE (10:05)
[2018-05-14] MEDS ORDERED: Sodium Chloride 0.9% 1,000 ML ONE (10:16)
[2018-05-14 10:34] LABS: URINE BILIRUBIN NEGATIVE (NEGATIVE); URINE BLOOD NEGATIVE (NEGATIVE); URINE CLARITY Clear (Clear); URINE COLOR Yellow (YELLOW); URINE GLUCOSE (UA) NORMAL (Normal); URINE LEUKOCYTE ESTERASE NEG Leu/uL (Negative); URINE PROTEIN NEGATIVE (NEGATIVE); URINE UROBILINOGEN NORMAL mg/dL (0.2-1.0)
[2018-05-14 10:43] LABS: BASO % 0.6 % (0.0-2.0); EOS # 0.1 K/uL (0.0-0.7); EOS % 1.2 % (0.0-4.0); HEMOGLOBIN 15.2 g/dL (12.0-18.0); LYMPH # 1.3 K/uL (1.0-4.3); MEAN CELL VOLUME 92.1 fL (80.0-94.0); MEAN CORPUSCULAR HEMOGLOBIN 31.5 pg (27.0-31.0); MEAN CORPUSCULAR HGB CONC 34.2 g/dL (33.0-37.0); MEAN PLATELET VOLUME 8.7 fL (7.2-11.7); MONO # 0.5 K/uL (0.0-0.8); MONO % 7.6 % (0.0-10.0); NEUT # 4.7 K/uL (1.8-7.0); NEUT % 71.6 % (50.0-75.0); NRBC % 0.1 % (0.0-2.0); RBC 4.82 Mil/uL (4.40-5.90); RED CELL DISTRIBUTION WIDTH 12.7 % (11.5-14.5); WHITE BLOOD COUNT 6.6 K/uL (4.8-10.8)
[2018-05-14 10:45] LABS: ALB/GLOB RATIO 1.4 (1.0-2.1); ALT/SGPT 62 U/L (21-72); AST/SGOT 35 U/L (17-59); BLOOD UREA NITROGEN 12 mg/dL (9-20); CALCIUM 8.6 mg/dl (8.6-10.4); GFR NON-AFRICAN AMERICAN > 60
--- NOTE | 2018-05-14 10:51 | C.PDOC ---
Addendum entered and electronically signed by Darcy Salgado PA-C 05/15/18 17:52: Original Note: History Of Present Illness 63 year old male with a history of herniated disks and kidney stones presents to the ED for evaluation of left-sided lower back pain for 4 days. Patient reports he lifted a heavy object which he believes caused his back pain, use of Naproxen with transient relief. Denies fever, nausea, vomiting, abdominal pain, extremity weakness, extremity, numbness, incontinence, and any other associated symptoms. Time Seen by Provider: 05/14/18 09:58 Chief Complaint (Nursing): Back Pain History Per: Patient History/Exam Limitations: no limitations Onset/Duration Of Symptoms: Days Current Symptoms Are (Timing): Still Present Past Medical History Reviewed: Historical Data, Nursing Documentation, Vital Signs Vital Signs: Last Vital Signs Temp 97.6 F 05/14/18 09:38 Pulse 74 05/14/18 09:38 Resp 18 05/14/18 09:38 BP 153/87 H 05/14/18 09:38 Pulse Ox 99 05/14/18 09:38 - Medical History PMH: Anxiety, HTN Denies: Chronic Kidney Disease Surgical History: Denies: Pacemaker Family History: States: Unknown Family Hx - Social History Hx Alcohol Use: No Hx Substance Use: No - Immunization History Hx Tetanus Toxoid Vaccination: No Hx Influenza Vaccination: No Hx Pneumococcal Vaccination: No Review Of Systems Constitutional: Negative for: Fever Gastrointestinal: Negative for: Nausea, Vomiting, Abdominal Pain Genitourinary: Negative for: Incontinence Musculoskeletal: Positive for: Back Pain (lower left side.) Neurological: Negative for: Weakness, Numbness, Incoordination Physical Exam - Physical Exam Appears: Well Skin: Normal Color, Warm, Dry, No Ecchymosis Head: Atraumatic, Normacephalic Oral Mucosa: Moist Cardiovascular: Rhythm Regular, No Murmur Respiratory: Decreased Breath Sounds, No Rales, No Rhonchi, No Wheezing Gastrointestinal/Abdominal: Normal Exam, Soft, No Tenderness Back: Normal Inspection, No CVA Tenderness, No Vertebral Tenderness, No Paraspinal Tenderness, No Other ((-) swelling.) Extremity: Normal ROM (x4) Neurological/Psych: Oriented x3, Normal Speech, Normal Motor, Normal Sensation, Normal Reflexes Gait: Steady ED Course And Treatment - Laboratory Results Result Diagrams: 05/14/18 10:25 05/14/18 10:25 O2 Sat by Pulse Oximetry: 99 (RA) Pulse Ox Interpretation: Normal - Other Rad X-ray LS X-Ray: Viewed By Me, Read By Radiologist Interpretation: FINDINGS: BONES: Mild scoliosis. No listhesis. No acute displaced fracture identified. Multilevel degenerative changes including anterior osteophyte formation. Facet hypertrophy. DISC SPACES: Intervertebral disc space narrowing. Vacuum disc phenomenon at L5-S1 and L4-L5. OTHER FINDINGS: None. IMPRESSION: Osseous demineralization. Multilevel degenerative changes. No acute displaced fracture. Grade 1 retrolisthesis of L3 on L4. Medical Decision Making Medical Decision Making: Plan/Orders: --Blood sent. --Urine Culture. --Urinalysis. --X-ray LS. Reassessment: Information given regarding preliminary nature of x-ray reading, with possibility that a fracture not initially detected in the ED may be found on final reading, with subsequent notification. Patient was therefore told that close follow up care for further evaluation is mandatory and further imaging may be necessary. X-ray viewed by me and appeared normal. Patient stable for discharge home. Prescribed Cyclobenzaprine. Disposition Counseled Patient/Family Regarding: Diagnosis, Need For Followup, Rx Given - Disposition Referrals: Valentina Willis MD [Medical Doctor] - Disposition: HOME/ ROUTINE Disposition Time: 11:25 Condition: GOOD Additional Instructions: [place] naproxeno para el dolor segn sea necesario talisha relajante muscular segn sea necesario, puede causar somnolencia Prescriptions: Cyclobenzaprine [Cyclobenzaprine HCl] 10 mg PO TID #30 tab Instructions: Low Back Pain (DC) Print Language: CITIZEN OF [place] - POA Present On Arrival: None - Clinical Impression Clinical Impression: Low back pain - PA / [employer] TECHNICIAN / Resident Statement MD/DO has reviewed & agrees with the documentation as recorded. - Scribe Statement The provider has reviewed the documentation as recorded by the Scribe (Roselyn Weber) All medical record entries made by the Scribe were at my direction and personally dictated by me. I have reviewed the chart and agree that the record accurately reflects my personal performance of the history, physical exam, medical decision making, and the department course for this patient. I have also personally directed, reviewed, and agree with the discharge instructions and disposition.
[2018-05-14 11:41] VITALS: BP 140/79; PULSE 72; RESP 16; TEMP 97.5
--- NOTE | 2018-05-14 11:57 | RAD ---
Date of service: 05/14/2018 PROCEDURE: Radiographs of the Lumbar Spine. HISTORY: low back pain COMPARISON: Lumbar spine radiographs performed 02/26/15 FINDINGS: BONES: Mild scoliosis. No listhesis. No acute displaced fracture identified. Multilevel degenerative changes including anterior osteophyte formation. Facet hypertrophy. DISC SPACES: Intervertebral disc space narrowing. Vacuum disc phenomenon at L5-S1 and L4-L5. OTHER FINDINGS: None. IMPRESSION: Osseous demineralization. Multilevel degenerative changes. No acute displaced fracture. Grade 1 retrolisthesis of L3 on L4.
== END 2018-05-14 11:39 | disposition home or self-care (01) ==
LOC: C.ER 09:08
DX: M54.5 Low back pain (principal)
CPT/HCPCS: 72100; 80053; 81001; 85025; 87086; 96361; 96374; 99284; J1885; J7030

== ENCOUNTER 2018-06-10 08:51 | Emergency (ER) | payer MEDICARE, MEDICAID ==
[2018-06-10 08:52] VITALS: BMI 28.2
[2018-06-10 09:12] VITALS: BP 134/77; PULSE 84; RESP 20; TEMP 97.4; O2SAT 98
--- NOTE | 2018-06-10 10:01 | C.PDOC ---
History Of Present Illness 63 y/o male, w/ PMhx of chronic back pain, presents to the ER c for acute onset of lower back discomfort s/p mild strain. Patient states that he has history of chronic back pain for many years. Patient reports that he had some heating pads and hot showers without relief. 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 Time Seen by Provider: 06/10/18 09:33 Chief Complaint (Nursing): Back Pain History Per: Patient History/Exam Limitations: no limitations Onset/Duration Of Symptoms: Days Current Symptoms Are (Timing): Still Present Severity: Moderate Past Medical History Reviewed: Historical Data, Nursing Documentation, Vital Signs Vital Signs: Last Vital Signs Temp 97.4 F L 06/10/18 09:03 Pulse 84 06/10/18 09:03 Resp 20 06/10/18 09:03 BP 134/77 06/10/18 09:03 Pulse Ox 98 06/10/18 09:03 - Medical History PMH: Anxiety, HTN Denies: Chronic Kidney Disease Surgical History: Denies: Pacemaker Other Surgeries: Hx of surgeries Family History: States: No Known Family Hx - Social History Hx Alcohol Use: No Hx Substance Use: No - Immunization History Hx Tetanus Toxoid Vaccination: No Hx Influenza Vaccination: No Hx Pneumococcal Vaccination: No Review Of Systems Except As Marked, All Systems Reviewed And Found Negative. Genitourinary: Negative for: Dysuria, Frequency, Hematuria Musculoskeletal: Positive for: Back Pain Physical Exam - Physical Exam Appears: Non-toxic, No Acute Distress, Other (sits and stands easily) Skin: Normal Color, Warm, Dry Head: Atraumatic, Normacephalic Eye(s): bilateral: Normal Inspection Nose: Normal Oral Mucosa: Moist Neck: Supple Chest: Symmetrical Cardiovascular: Rhythm Regular Respiratory: Normal Breath Sounds, No Rales, No Rhonchi, No Wheezing Back: Paraspinal Tenderness (lumbar paraspinal tenderness) Extremity: Normal ROM Neurological/Psych: Oriented x3, Normal Speech, Normal Motor (bilateral legs), Normal Sensation (bilateral legs) ED Course And Treatment O2 Sat by Pulse Oximetry: 98 (RA) Pulse Ox Interpretation: Normal Medical Decision Making Medical Decision Making: low back strain, acute on chronic worse with heat therapies NSAIDS/ice educated Disposition Doctor Will See Patient In The: Office Counseled Patient/Family Regarding: Studies Performed, Diagnosis - Disposition Referrals: [facility] [Outside] [facility] [Outside] [facility] [Outside] Disposition: HOME/ ROUTINE Disposition Time: 10:01 Condition: GOOD Additional Instructions: [place] 1/2 hora por hora, nada caliente no remy anny caliente por 2 galvan ibuprofeno/advil/Motrin 400-600 mg cada 6 horas matilda necessario Flexeril 10 mg en la noche (le da sueno) para dormir Sigue en la [facility] matilda necessario Instructions: Muscle Strain, Low Back Pain in Adults Forms: [facility] (Citizen Of [place]) Print Language: TAJIK - Clinical Impression Clinical Impression: Low back strain - Scribe Statement The provider has reviewed the documentation as recorded by the Scribe Jeff Sheehan Provider Attestation: All medical record entries made by the Scribe were at my direction and personally dictated by me. I have reviewed the chart and agree that the record accurately reflects my personal performance of the history, physical exam, medical decision making, and the department course for this patient. I have also personally directed, reviewed, and agree with the discharge instructions and disposition.
== END 2018-06-10 10:13 | disposition home or self-care (01) ==
LOC: C.ER 08:51
DX: S39.012A Strain of muscle, fascia and tendon of lower back, initial encounter (principal); X58.XXXA Exposure to other specified factors, initial encounter; I10 Essential (primary) hypertension
CPT/HCPCS: 96372; 99283; J1885